=== PATIENT | male | born 1955 | race Caucasian/White ===

== ENCOUNTER 2023-06-11 11:49 | Inpatient (IN) | payer MEDICARE ==
[~2023-06-11] VITALS: Ht 188 cm; Wt 95.1 kg
[2023-06-11 13:05] LABS: HEMATOCRIT 41.1 % (42.0-52.0); MEAN CELL VOLUME 99 fl (80.0-100.0); MEAN CORPUSCULAR HEMOGLOBIN 31 pg (27-31); MEAN CORPUSCULAR HGB CONC 32 g/dl (33.0-37.0); MEAN PLATELET VOLUME 9.8 fl (7.4-10.4); RED BLOOD COUNT 4.14 M/mm3 (4.20-5.60); REDCELL DISTRIBUTION WIDTH-CV 13.1 % (11.5-14.5)
[2023-06-11 13:21] LABS: ALBUMIN 2.4 gm/dL (3.4-4.8); BILIRUBIN,TOTAL 0.7 mg/dL (0.2-1.2); CREATININE, serum 1.19 mg/dL (0.72-1.25); MAGNESIUM 1.9 mg/dL (1.6-2.6); PHOSPHOROUS 3.7 mg/dL (2.3-4.7); TOTAL PROTEIN 7.8 gm/dL (6.2-8.1)
[2023-06-11 13:22] LABS: CALCIUM 12.8 mg/dL (8.4-10.2)
[2023-06-11 13:33] LABS: BAND 2 % (0-10); LYMPHOCYTE 70 % (20.0-51.0); NEUTROPHILS 26 % (42.0-75.2)
[2023-06-11 13:34] LABS: ANISOCYTOSIS 1+; HYPOCHROMIA 2+
[2023-06-11 13:35] LABS: PLATELET ESTIMATE INCREASED (NORMAL)
[2023-06-11 13:36] LABS: PLATELET COUNT 639 K/mm3 (130-400)
[2023-06-11 14:27] LABS: COLLECTION METHOD CLEAN CATCH
[2023-06-11 14:57] LABS: URINE APPEARANCE Cloudy (CLEAR/HAZY); URINE COLOR Yellow (YELLOW)
[2023-06-11 14:58] LABS: PH 8.5 (5.0-8.5); URINE GLUCOSE Negative (NEGATIVE); URINE PROTEIN(semi-quant) Negative (NEGATIVE)
[2023-06-11 14:59] LABS: AMORPHOUS CRYSTAL Present (NOT PRESENT); URINE BLOOD 1+ (NEGATIVE); URINE KETONE TRACE (NEGATIVE); URINE NITRATE Negative (NEGATIVE); URINE UROBILINOGEN 0.2 E.U/dL (0.2-1.0)
[2023-06-11 15:00] LABS: URINE BACTERIA Many /hpf (NONE SEEN)
--- NOTE | 2023-06-11 15:27 | NUR ---
general foundry worker met with patient and his sister, Shyann Walter #[phone]. Patient has a trach and communicates via [employer] software board. Patient moved from [place] on May 06 to the [facility]. Patient has terminal lung cancer and agrees to return back to the hospice house. Worker and patient discussed his concerns that he needs more education on the dying process and what steps the hospice house will take to ease his comfort if he needs suctioned or has a mucus plug. Patient states that he wants to see the new Channel Machine Operator, Dr Brady, of the hospice house to discuss the above concerns. Worker contacted Dano at [facility] and confirmed that they will have Dr Brady see patient soon and continue conversations about end of life care. Worker collaborated with ED nursing and physician's regarding the above information. Patient will be admitted for peg tube reinsertion.
--- NOTE | 2023-06-11 17:48 | NUR ---
Patient arrived from the ER to the medical unit, alert, with sputum production.
--- NOTE | 2023-06-11 19:31 | NUR ---
Report given to night RN.
[2023-06-11 20:00] VITALS: BP 118/75; PULSE 87; TEMP 98.5
--- NOTE | 2023-06-11 20:00 | NUR ---
Assessment complete. A&Ox4. Using white board for communication. Requested medications be written on white board-done at this time. INT to right upper arm flushes well and has good blood return but does have a hematoma surrounding the area. Will monitor this. Noted to have redness to buttocks. TELE reporting A FIB. Gallardo cath with clear yellow urine. SCDs. Patient requesting RT to come to change trach. Spoke with RT and they are on their way. Plan of care discussed for this shift to include meds/pain control/calling for questions/concerns. Call light in reach. Will monitor.
--- NOTE | 2023-06-11 23:50 | NUR ---
Patient requested new IV to be placed due to location/bruising at old site-left upper arm. 20g INT DCd at this time-cath intact. New IV placed to right [id number] attempt. Morphine 2mg given IV per dr order for pain rated 8/10-generalized ache. Will monitor.
[2023-06-12] VITALS (11 sets, daily range): BP systolic 117–150; BP diastolic 68–92; PULSE 64–100; TEMP 97.4–98.4
--- NOTE | 2023-06-12 00:26 | NUR ---
Patient called requesting RT again. Spoke with RT and will come to see patient again. When asking patient what he needs from RT he states "I dont know I just want them."
--- NOTE | 2023-06-12 05:42 | NUR ---
Patient had a very restless night. VS remained stable. Requested RT to room several times for suctioning and cannula changes. TELE reporting A fib. Gallardo cath with clear yellow urine. SCDs. INT to right forearm flushes well no s/s of infiltration noted. Received morphine several times for pain. Currently resting with eyes closed. Call light in reach. Will monitor.
--- NOTE | 2023-06-12 06:52 | NUR ---
Report given to KAMERON Clark.
[2023-06-12 07:55] LABS: HEMATOCRIT 39.2 % (42.0-52.0); HEMOGLOBIN 12.8 g/dl (13.5-18.0); MEAN CELL VOLUME 97 fl (80.0-100.0); MEAN CORPUSCULAR HEMOGLOBIN 32 pg (27-31); MEAN CORPUSCULAR HGB CONC 33 g/dl (33.0-37.0); MEAN PLATELET VOLUME 10.4 fl (7.4-10.4); PLATELET COUNT 645 K/mm3 (130-400); RED BLOOD COUNT 4.04 M/mm3 (4.20-5.60); REDCELL DISTRIBUTION WIDTH-CV 12.9 % (11.5-14.5)
[2023-06-12 08:14] LABS: ALBUMIN 2.3 gm/dL (3.4-4.8); CALCIUM 11.7 mg/dL (8.4-10.2); CREATININE, serum 1.18 mg/dL (0.72-1.25); MAGNESIUM 1.9 mg/dL (1.6-2.6); PHOSPHOROUS 3.7 mg/dL (2.3-4.7); POTASSIUM 3.8 mmol/L (3.5-4.5)
[2023-06-12 09:50] LABS: BAND 1 % (0-10); PLATELET ESTIMATE INCREASED (NORMAL)
[2023-06-12 09:54] LABS: LYMPHOCYTE 83 % (20.0-51.0); NEUTROPHILS 16 % (42.0-75.2)
--- NOTE | 2023-06-12 10:10 | NUR ---
PATIENT OFF OF FLOOR FOR SURGERY. PREOP FLUIDS RUNNING. PORTABLE O2 TANK SENT ON 7L.
--- NOTE | 2023-06-12 10:57 | NUR ---
PATIENT ALERT AND ORIENTED X4. VSS. PATIENT HERE FOR UTI/PEG TUBE REPLACEMENT. PATIENT REPORTS PAIN /, REQUESTS PAIN MEDICATION. PATIENT INFORMED THAT MORPHINE IS NOT DUE TO BE ADMINISTERED PER ORDERS. IV TO RIGHT FA INT AND FLUSHES WELL. MENDOZA TO DD WITH SANDIP/CLOUDY OUTPUT. COCCYX/SACRAL AREA REDDENED BUT BLANCHABLE. PATIENT HAD MEDIUM SIZE BOWEL MOVEMENT TODAY. BEDDING CHANGED, BRIEF PLACED ON PER PATIENT'S REQUEST. PATIENT ON 7L O2 THROUGH TRACH SITE. NO FURTHER NEEDS. CALL LIGHT IN REACH. BED ALARM ON.
[2023-06-12] MEDS ORDERED: MUCINEX FAST-M177 ML PO (11:35)
--- NOTE | 2023-06-12 12:05 | NUR ---
PATIENT BROUGHT TO FLOOR FROM PACU. POST OP VITALS BEGAN. PEG TUBE DRESSING INTACT. PATIENT REPORTS MILD PAIN, TOLERABLE AND DENIES NEED FOR PAIN MEDICATION. POST OP FLUIDS RUNNING. PATIENT RESTING IN BED. CALL LIGHT IN REACH. BED ALARM ON.
[2023-06-12] MEDS ORDERED: ATIVAN 1MG T1 MG/TAB PO (13:01)
[2023-06-12] MEDS ORDERED: ROXANOL 20MG20 MG/ML PO (13:06)
[2023-06-12] MEDS ORDERED: NEURONTIN250 MG/5 M PO (13:07)
[2023-06-12] MEDS ORDERED: PULMICORT0.5 MG/2 M IH (13:08)
[2023-06-12] MEDS ORDERED: ROBINUL1 MG PO (13:10)
[2023-06-12] MEDS ORDERED: BREZTRI AEROS10.7 GM IH (13:10)
[2023-06-12] MEDS ORDERED: TRANEXAMIC ACID IH (13:14)
[2023-06-12] MEDS ORDERED: PROTONIX 40MG T40 MG PO (13:15)
[2023-06-12] MEDS ORDERED: NORCO 325 MG-101 TAB PO (13:15)
[2023-06-12] MEDS ORDERED: MAALOX ADVANCE148 ML PO (13:16)
[2023-06-12] MEDS ORDERED: FENTANYL 100MCG TD (13:17)
[2023-06-12] MEDS ORDERED: IPRATROPIUM BROM3 M1 IH (13:19)
--- NOTE | 2023-06-12 17:46 | NUR ---
cut and cover line worker was notified patient may [facility]. SW notified patient whom understood and asked about a time. SW will arrange this with [facility] and EMS. Discharge Plan: [facility]
--- NOTE | 2023-06-12 17:57 | NUR ---
PATIENT REPORTS PAIN 8/10, REQUESTS PAIN MEDICATION. 10MG NORCO ADMINISTERED THROUGH PEG TUBE.
--- NOTE | 2023-06-12 17:58 | NUR ---
PATIENT REPORTS PAIN CONTINUES TO STAY AT AN 8/10, REQUESTS ROXANOL. ADMINISTERED VIA PEG TUBE.
--- NOTE | 2023-06-12 21:49 | NUR ---
patient lying in bed alert and oriented x4. pt denies chest pain and reports lower back pain rated as an 8/10, communication used through white board and representation. [place] given, per request. IV in RF is patent, site is clean dry and intact. PEG tube site is clean dry and intact, meds given via PEG tube with 30ml of water and 60ml of flush (30 before and 30 after). dressing on right lower neck/shoulder changed, skin tear with small white escar opening in the center with slight redness surrounding. sacral region is red but blanchable, dry cracked heels, hematoma on ANGELIA, generalized scattered bruising on extremities, fentanyl patch to the left chest, tracheal catheter in place and intact, pt producing secretions, suctioning utilitied by RT. noted. pt has no further needs, questions, or concerns at this time. fall precautions in place, sheron light within reach. will continue to monitor.
[2023-06-13] VITALS (13 sets, daily range): BP systolic 117–136; BP diastolic 49–71; PULSE 69–84; TEMP 97.8–98.3
[2023-06-13 07:06] LABS: HEMOGLOBIN 11.9 g/dl (13.5-18.0); MEAN CELL VOLUME 96 fl (80.0-100.0); MEAN CORPUSCULAR HEMOGLOBIN 32 pg (27-31); MEAN CORPUSCULAR HGB CONC 33 g/dl (33.0-37.0); MEAN PLATELET VOLUME 9.9 fl (7.4-10.4); PLATELET COUNT 629 K/mm3 (130-400); RED BLOOD COUNT 3.73 M/mm3 (4.20-5.60)
[2023-06-13 07:09] LABS: HEMATOCRIT 35.8 % (42.0-52.0)
[2023-06-13 07:33] LABS: ALBUMIN 2.3 gm/dL (3.4-4.8); CALCIUM 10.9 mg/dL (8.4-10.2); CREATININE, serum 1.44 mg/dL (0.72-1.25); PHOSPHOROUS 4.1 mg/dL (2.3-4.7); POTASSIUM 3.8 mmol/L (3.5-4.5)
[2023-06-13 08:27] LABS: PATHOLOGY DIFF REVIEW OK
[2023-06-13] MEDS ORDERED: CEPHALEXIN500 M1 PEG (08:41)
--- NOTE | 2023-06-13 09:21 | NUR ---
PT AWAKE LYING IN BED ON ASSESSMENT. PT COMPLAINT OF PAIN AND STATED HE HAS NOT BEEN ABLE TO SLEEP THROUGHOUT THE NIGHT. PRN MEDICATION GIVEN, EFFECTIVE. SCHEDULED MEDS GIVEN VIA PEG TUBE, TOLERATED WELL. PT REQUESTED RT COME IN TO ASSIST WITH TRACH, RT HAS BEEN IN TO SEE HIM. PLAN FOR PT TO DISCHARGE BACK TO HOSPICE HOUSE TODAY.
--- NOTE | 2023-06-13 09:25 | NUR ---
Initial visit; Patient unable to visit but signaled to Piercing Artist that he would like her to keep him in her prayers and nodded "thank-you" for wishing him well and offering God's blessings. Piercing Artist will follow up if patient is here in awhile.
[2023-06-13 10:16] LABS: LYMPHOCYTE 74 % (20.0-51.0); NEUTROPHILS 24 % (42.0-75.2); PLATELET ESTIMATE INCREASED (NORMAL)
--- NOTE | 2023-06-13 11:03 | NUR ---
mop worker was notified patient is medically cleared for discharge. EBER contacted [facility] to arrange time for EMS to transport. Dano from [facility] reports they are unable to accept patient due to multiple admissions today. Dano also expressed patient will need to have a face to face meeting with their medical records analyst per Medicare requirements. Dano expressed patient and the family have expressed back and forth with the decision for hospice services so the medical records analyst will be discussing this with them. EBER updated EBER Elliott whom expressed during her visit with the patient and family members, they wanted to resume hospice services upon discharge. EBER met with patient and notified him that the medical records analyst would be meeting with him and his family members as part of the Medicare requirements. EBER explained they would be unable to transfer him to the hospice house today. Patient understood. No questions at this time. EBER notified community support associate and nurse. EBER notified patient's family member, Shyann, of the above information. Shyann understood and no questions at this time. Discharge plan: [facility] [place]
--- NOTE | 2023-06-13 15:28 | NUR ---
workers compensation analyst was notified patient would be able to transfer to the hospice house tomorrow. [facility] would like patient to arrive around 10:30 AM. SW notified patient, patient's family, community nurse, nurse and patient's doctor. SW arranged EMS to transport patient at 10:30 AM tomorrow, 06/14/23. Discharge Plan: [facility]
[2023-06-14] VITALS: BP_SYST 136
--- NOTE | 2023-06-14 01:23 | NUR ---
patient lying in bed, alert and oriented x4. pt denies chest pain and reports pain in the right jaw/ear rated 8/10, jaw is swollen and firm, roxinal and ativan given per request. [place] given when available for pain rated 9/10 upon resassessment. IV is RF is patent, site is clean dry and intact. sacral region is slightly red but blanchable, dry scaly and cracked heels-lotion applied. general scattered bruising on extremities, hematoma on left upper arm, left chest fetanyl patch maintained, foam dressing to the right lower neck clean dry and intact. tube feeding given q4hrs 1/2 bottle of jevity 1.5 with 200 mls free water, pt denies stomach discomfort or nausea. pt has no further needs, questions or concerns at this time. fall precautions in place, call light within reach, will continue to monitor.
[2023-06-14 03:47] VITALS: BP 147/71; PULSE 74; TEMP 98.5
[2023-06-14 04:38] VITALS: BP_SYST 147
[2023-06-14 06:59] LABS: HEMOGLOBIN 10.4 g/dl (13.5-18.0); MEAN CELL VOLUME 98 fl (80.0-100.0); MEAN CORPUSCULAR HEMOGLOBIN 31 pg (27-31); MEAN CORPUSCULAR HGB CONC 32 g/dl (33.0-37.0); MEAN PLATELET VOLUME 9.8 fl (7.4-10.4); PLATELET COUNT 568 K/mm3 (130-400); RED BLOOD COUNT 3.35 M/mm3 (4.20-5.60); REDCELL DISTRIBUTION WIDTH-CV 13.2 % (11.5-14.5)
[2023-06-14 07:13] LABS: CALCIUM 10.3 mg/dL (8.4-10.2); CREATININE, serum 1.3 mg/dL (0.72-1.25); MAGNESIUM 1.9 mg/dL (1.6-2.6); PHOSPHOROUS 2.4 mg/dL (2.3-4.7); POTASSIUM 3.5 mmol/L (3.5-4.5)
[2023-06-14 07:18] LABS: HEMATOCRIT 32.8 % (42.0-52.0)
[2023-06-14 07:35] LABS: EOSINOPHIL 1 % (0-4); LYMPHOCYTE 73 % (20.0-51.0); NEUTROPHILS 24 % (42.0-75.2); PLATELET ESTIMATE INCREASED (NORMAL)
--- NOTE | 2023-06-14 07:40 | NUR ---
CRITICAL LAB CALLED FOR WBC 41.2.
[2023-06-14 07:57] VITALS: BP 151/73; PULSE 69; TEMP 98.3
[2023-06-14 09:00] VITALS: BP_SYST 151
--- NOTE | 2023-06-14 10:45 | NUR ---
PATIENT ESCORTED OFF MEDICAL UNIT VIA BED BY EMS. ALL BELONGINGS WITH PATIENT.
--- NOTE | 2023-06-14 10:51 | NUR ---
REPORT CALLED TO [facility]. ALL QUESTIONS ANSWERED.
--- NOTE | 2023-06-14 11:20 | NUR ---
social group worker met with patient and his sister, Shyann. Shyann asked if patient's antibiotics were faxed to pharmacy. EBER was notified by Dr. Harris antibiotics were sent to [facility] yesterday. EBER contacted [facility] pharmacy whom expressed the medications would be sent today. EBER emailed discharge orders to [facility] [place]. Discharge plan: [facility] [place]
== END 2023-06-14 10:45 | disposition hospice, inpatient (51) | DRG 394 ==
LOC: COL.ER 11:49 → MEDICAL 15:10
PROVIDERS: Emergency Medicine; ADMIT Internal Medicine
PROC: 0DH63UZ Insertion of Feeding Device into Stomach, Percutaneous Approach (ICD-10-PCS; principal; 2023-06-11)
DX: Z43.1 Encounter for attention to gastrostomy (principal); C22.8 Malignant neoplasm of liver, primary, unspecified as to type; C79.89 Secondary malignant neoplasm of other specified sites; Z66 Do not resuscitate
CPT/HCPCS: A4314; J0690; J0696; J1100; J1885; J2060; J2270; J2405; J7030; Q9967